=== PATIENT | male | born 1940 | race Hispanic/Latino ===

== ENCOUNTER 2017-06-16 11:02 | Inpatient (IN) | payer MEDICARE ==
[~2017-06-16] VITALS: Ht 172.7 cm; Wt 80.4 kg
[2017-06-16 11:33] LABS: CREATININE 1.6 mg/dL (0.5-1.5); POTASSIUM 3.9 mmol/L (3.5-5.1)
[2017-06-16 11:37] LABS: BASOPHILS % (AUTO) 0.7 % (0.0-5.0); EOSINOPHILS % (AUTO) 0.9 % (0.0-8.0); HEMATOCRIT 45.3 % (42-54); MEAN CORPUSCULAR HEMOGLOBIN 29.8 pg (27.0-33.0); MEAN CORPUSCULAR HGB CONC 33.8 g/dL (32.0-36.0); MONOCYTES % (AUTO) 8.2 % (3.0-13.0); NEUTROPHILS % (AUTO) 67.2 % (40.0-77.0); PLATELET COUNT (AUTO) 143 K/uL (130-400); RED BLOOD CELL COUNT(AUTO) 5.14 MIL/uL (4.50-6.20); RED CELL DISTRIBUTION WIDTH 13.7 % (11.0-15.5); WHITE BLOOD COUNT (AUTO) 6.7 K/uL (4.8-10.8)
[2017-06-16 11:38] LABS: ALBUMIN 3.6 g/dL (3.5-5.0); BILIRUBIN,TOTAL 0.8 mg/dL (0.2-1.0); TOTAL PROTEIN, SERUM 8.2 g/dL (6.0-8.3)
[2017-06-16 13:10] VITALS: BP 159/91
[2017-06-16] MEDS ORDERED: SODIUM CHLORIDE 0.9% 1000ML 1,000 ML IV ONE (13:27)
[2017-06-16] MEDS ORDERED: MAG HYDROX/AL HYDROX/SIMETH ES 30 ML SUSP UDCUP PO PRN (13:30)
[2017-06-16] MEDS ORDERED: GUAIFENESIN-DM 200/20 MG 10 ML PO PRN (13:30)
[2017-06-16] MEDS ORDERED: ONDANSETRON HCL 4 MG/2 ML VIAL IV PRN (13:30)
[2017-06-16] MEDS ORDERED: NITROGLYCERIN 0.4 MG SL TAB SL PRN (13:30)
[2017-06-16] MEDS ORDERED: ACETAMINOPHEN-CODEINE 300/30MG TAB PO PRN (13:30)
[2017-06-16] MEDS ORDERED: POTASSIUM CHLORIDE 20MEQ/100ML 100 ML IV PRN (13:30)
[2017-06-16] MEDS ORDERED: MORPHINE SULFATE 2 MG/ML 1ML SYG IV PRN (13:30)
[2017-06-16] MEDS ORDERED: LACTULOSE 20 GM/30 ML UDCUP PO PRN (13:30)
[2017-06-16] MEDS ORDERED: LIDOCAINE HCL-MPF 1% 2ML VIAL IVP PRN (13:30)
[2017-06-16] MEDS ORDERED: ACETAMINOPHEN 325 MG TAB PO PRN ×2 (13:30)
[2017-06-16] MEDS ORDERED: POTASSIUM CHLORIDE 20 MEQ ERTAB PO PRN (13:30)
[2017-06-16] MEDS ORDERED: POTASSIUM CHLORIDE 10% ELIXIR 20 MEQ/15 ML UDCUP PO PRN (13:30)
[2017-06-16] MEDS ORDERED: FINA5TAB41 PO (13:59)
[2017-06-16] MEDS ORDERED: ALLO100T PO (13:59)
[2017-06-16] MEDS ORDERED: LISI1TAB9 PO (13:59)
[2017-06-16] MEDS ORDERED: AMLO5TAB2 PO (13:59)
[2017-06-16] MEDS ORDERED: CHLO473M2 BC (13:59)
[2017-06-16 14:54] LABS: HEMATOCRIT 42.2 % (42-54); MEAN CORPUSCULAR HEMOGLOBIN 29.8 pg (27.0-33.0); MEAN CORPUSCULAR HGB CONC 33.9 g/dL (32.0-36.0); PLATELET COUNT (AUTO) 145 K/uL (130-400); WHITE BLOOD COUNT (AUTO) 6.2 K/uL (4.8-10.8)
[2017-06-16 14:57] LABS: CREATININE 1.5 mg/dL (0.5-1.5); POTASSIUM 3.7 mmol/L (3.5-5.1)
[2017-06-16] MEDS: SODIUM CHLORIDE 0.9% 1000ML 1,000 ML IV SCH (15:45)
[2017-06-16] MEDS ORDERED: CLONIDINE HCL 0.1 MG TABLET PO PRN (15:45)
[2017-06-16] MEDS ORDERED: IOPAMIDOL-370 100 ML VIAL IV ONE (15:53)
[2017-06-16 17:41] VITALS: BP 163/91
[2017-06-16] MEDS: HYDRALAZINE HCL 20 MG/ML VIAL IV PRN (19:07)
[2017-06-16 19:44] VITALS: BP 136/77
[2017-06-16] MEDS: LABETALOL HCL 100 MG TABLET PO SCH (21:00)
[2017-06-16] MEDS: FINASTERIDE 5 MG TABLET PO SCH (21:06)
[2017-06-16] MEDS: FAMOTIDINE/PF 20 MG/2 ML VIAL IV SCH (21:06)
[2017-06-16 23:39] VITALS: BP 132/77
[2017-06-17] VITALS (17 sets, daily range): BP systolic 133–166; BP diastolic 59–94
[2017-06-17] MEDS: SODIUM CHLORIDE 0.9% 1000ML 1,000 ML IV SCH ×4 (00:32→21:21)
[2017-06-17 03:41] LABS: BASOPHILS % (AUTO) 0.8 % (0.0-5.0); EOSINOPHILS % (AUTO) 2.3 % (0.0-8.0); HEMATOCRIT 40.5 % (42-54); LYMPHOCYTES % (AUTO) 26.3 % (21.0-51.0); MEAN CORPUSCULAR HEMOGLOBIN 29.9 pg (27.0-33.0); MEAN CORPUSCULAR HGB CONC 33.9 g/dL (32.0-36.0); MEAN CORPUSCULAR VOLUME 88.1 fL (79-99); MONOCYTES % (AUTO) 11.7 % (3.0-13.0); NEUTROPHILS % (AUTO) 58.9 % (40.0-77.0); PLATELET COUNT (AUTO) 143 K/uL (130-400); RED CELL DISTRIBUTION WIDTH 13.8 % (11.0-15.5); WHITE BLOOD COUNT (AUTO) 5.4 K/uL (4.8-10.8)
[2017-06-17 04:07] LABS: BILIRUBIN,TOTAL 0.7 mg/dL (0.2-1.0); CREATININE 1.5 mg/dL (0.5-1.5); MAGNESIUM 2.3 mg/dL (1.80-2.40); POTASSIUM 3.8 mmol/L (3.5-5.1); TOTAL PROTEIN, SERUM 6.9 g/dL (6.0-8.3)
[2017-06-17 04:35] LABS: B-TYPE NATRIURETIC PEPTIDE 36 pg/mL (0-100)
[2017-06-17 05:39] LABS: INR 0.97 (0.85-1.15); PROTHROMBIN TIME 10.2 SEC (9.6-11.6)
[2017-06-17 05:42] LABS: APPEARANCE,URINE Clear (CLEAR); BILIRUBIN,URINE Negative (NEGATIVE); COLOR,URINE Yellow (YELLOW); GLUCOSE, URINE (UA) Negative (NEGATIVE); KETONES,URINE Negative (NEGATIVE); LEUKOCYTE ESTERASE ,URINE Negative (NEGATIVE); NITRATE,URINE Negative (NEGATIVE); OCCULT BLOOD,URINE Negative (NEGATIVE); PH,URINE 5.5 (5.0-8.0); PROTEIN,URINE Negative (NEGATIVE)
[2017-06-17] MEDS: HYDROCHLOROTHIAZIDE 25 MG TABLET PO SCH (09:00)
[2017-06-17] MEDS: AMLODIPINE BESYLATE 5 MG TAB PO SCH (09:01)
[2017-06-17] MEDS: LABETALOL HCL 100 MG TABLET PO SCH ×2 (09:01→21:00)
[2017-06-17] MEDS: ALLOPURINOL 100 MG TABLET PO SCH (09:01)
[2017-06-17] MEDS: LISINOPRIL 10 MG TABLET PO SCH (09:01)
[2017-06-17] MEDS ORDERED: ONDANSETRON HCL 4 MG/2 ML VIAL ONE (11:47)
[2017-06-17] MEDS ORDERED: ATROPINE SULFATE 0.1 MG/ML 10 ML SYG IVP ONE (11:47)
[2017-06-17] MEDS ORDERED: GLYCOPYRROLATE 0.2 MG/ML 5 ML VIAL ONE (11:47)
[2017-06-17] MEDS ORDERED: HEPARIN SODIUM 1000UNIT/ML 10ML VIAL ONE ×2 (11:47→12:56)
[2017-06-17] MEDS ORDERED: ESMOLOL HCL 10 MG/ML 10 ML VIAL ONE (11:47)
[2017-06-17] MEDS ORDERED: DEXAMETHASONE SOD PHOSPHATE 10MG/ML 1ML VIAL ONE (11:47)
[2017-06-17] MEDS ORDERED: ROCURONIUM BROMIDE 10MG/1ML 5ML VL ONE (11:48)
[2017-06-17] MEDS ORDERED: MIDAZOLAM HCL 1 MG/ML 2ML VIAL ONE (11:48)
[2017-06-17] MEDS ORDERED: EPINEPHRINE 1 MG/ML AMPULE ONE (11:48)
[2017-06-17] MEDS ORDERED: EPHEDRINE SULFATE 50 MG/ML AMPULE ONE (11:49)
[2017-06-17] MEDS ORDERED: PROPOFOL 10 MG/ML 20ML VIAL IV ONE (11:49)
[2017-06-17] MEDS ORDERED: FENTANYL CITRATE PF 50 MCG/1 ML 5ML AMP IV ONE ×2 (11:49→13:53)
[2017-06-17] MEDS ORDERED: ISOVUE-300 100 ML VIAL IV ONE (12:56)
[2017-06-17] MEDS ORDERED: CEFAZOLIN 1GM / D5W 50ML 100 ML ONE (13:02)
[2017-06-17] MEDS ORDERED: NITROGLYCERIN 5 MG/ML 10 ML VIAL IV ONE (14:17)
[2017-06-17] MEDS ORDERED: PHARMACY COMMUNICATION MISC SCH (15:45)
[2017-06-17] MEDS ORDERED: NITROGLYCERIN 50 MG/D5% WATER 250 BOT IV SCH (15:45)
[2017-06-17] MEDS ORDERED: NOREPINEPHRINE 4MG/NS 250ML 250 ML IV SCH (15:45)
[2017-06-17] MEDS: FAMOTIDINE/PF 20 MG/2 ML VIAL IV SCH (21:15)
[2017-06-17] MEDS: FINASTERIDE 5 MG TABLET PO SCH (21:16)
[2017-06-17] MEDS: ACETAMINOPHEN-CODEINE 300/30MG TAB PO PRN (23:29)
[2017-06-18] VITALS (30 sets, daily range): BP systolic 132–177; BP diastolic 58–103
[2017-06-18] MEDS ORDERED: ATROPINE SULFATE 0.1 MG/ML 10 ML SYG IVP ONE (00:23)
[2017-06-18] MEDS ORDERED: CEFAZOLIN SODIUM 1 GM VIAL IV SCH (02:00)
[2017-06-18 03:43] LABS: HEMATOCRIT 37.9 % (42-54); MEAN CORPUSCULAR HEMOGLOBIN 30.1 pg (27.0-33.0); MEAN CORPUSCULAR HGB CONC 33.8 g/dL (32.0-36.0); MEAN CORPUSCULAR VOLUME 89.1 fL (79-99); PLATELET COUNT (AUTO) 110 K/uL (130-400); RED BLOOD CELL COUNT(AUTO) 4.26 MIL/uL (4.50-6.20); RED CELL DISTRIBUTION WIDTH 13.7 % (11.0-15.5); WHITE BLOOD COUNT (AUTO) 8.1 K/uL (4.8-10.8)
[2017-06-18] MEDS: SODIUM CHLORIDE 0.9% 1000ML 1,000 ML IV SCH ×3 (03:44→17:22)
[2017-06-18 03:55] LABS: CREATININE 1.4 mg/dL (0.5-1.5)
[2017-06-18] MEDS: ACETAMINOPHEN-CODEINE 300/30MG TAB PO PRN (08:16)
[2017-06-18] MEDS: MORPHINE SULFATE 4 MG/1ML SYG IV PRN (08:38)
[2017-06-18] MEDS: AMLODIPINE BESYLATE 5 MG TAB PO SCH (09:00)
[2017-06-18] MEDS: HYDROCHLOROTHIAZIDE 25 MG TABLET PO SCH (09:00)
[2017-06-18] MEDS: LISINOPRIL 10 MG TABLET PO SCH (09:00)
[2017-06-18] MEDS: LABETALOL HCL 100 MG TABLET PO SCH ×2 (09:00→21:00)
[2017-06-18] MEDS ORDERED: ENOXAPARIN SODIUM 30 MG/0.3 ML SQ SCH (09:00)
[2017-06-18] MEDS: ALLOPURINOL 100 MG TABLET PO SCH (10:01)
[2017-06-18] MEDS: DOCUSATE SODIUM 100 MG CAP PO SCH (10:02)
[2017-06-18] MEDS: FINASTERIDE 5 MG TABLET PO SCH (21:22)
[2017-06-18] MEDS: FAMOTIDINE/PF 20 MG/2 ML VIAL IV SCH (21:22)
[2017-06-19] VITALS (13 sets, daily range): BP systolic 127–179; BP diastolic 59–85
[2017-06-19] MEDS: SODIUM CHLORIDE 0.9% 1000ML 1,000 ML IV SCH ×2 (03:12→12:16)
[2017-06-19 04:08] LABS: HEMATOCRIT 35.7 % (42-54); MEAN CORPUSCULAR HGB CONC 34.9 g/dL (32.0-36.0); MEAN CORPUSCULAR VOLUME 88.8 fL (79-99); PLATELET COUNT (AUTO) 84 K/uL (130-400); RED BLOOD CELL COUNT(AUTO) 4.01 MIL/uL (4.50-6.20); RED CELL DISTRIBUTION WIDTH 13.7 % (11.0-15.5); WHITE BLOOD COUNT (AUTO) 7.5 K/uL (4.8-10.8)
[2017-06-19 04:16] LABS: CREATININE 1.4 mg/dL (0.5-1.5); POTASSIUM 3.8 mmol/L (3.5-5.1)
[2017-06-19] MEDS: ALLOPURINOL 100 MG TABLET PO SCH (07:25)
[2017-06-19] MEDS: DOCUSATE SODIUM 100 MG CAP PO SCH (07:25)
[2017-06-19] MEDS: LABETALOL HCL 100 MG TABLET PO SCH ×2 (07:26→20:08)
[2017-06-19] MEDS: AMLODIPINE BESYLATE 5 MG TAB PO SCH (07:26)
[2017-06-19] MEDS: HYDROCHLOROTHIAZIDE 25 MG TABLET PO SCH (09:00)
[2017-06-19] MEDS: LISINOPRIL 10 MG TABLET PO SCH (09:00)
[2017-06-19] MEDS: LISINOPRIL 5 MG TABLET PO SCH (13:12)
[2017-06-19] MEDS ORDERED: FUROSEMIDE 10 MG/ML 2ML VIAL ONE (13:43)
[2017-06-19] MEDS ORDERED: FUROSEMIDE 10 MG/ML 2ML VIAL IV ONE (13:45)
[2017-06-19] MEDS: FINASTERIDE 5 MG TABLET PO SCH (20:08)
[2017-06-19] MEDS: FAMOTIDINE/PF 20 MG/2 ML VIAL IV SCH (20:08)
[2017-06-20] VITALS (8 sets, daily range): BP systolic 110–172; BP diastolic 60–88
[2017-06-20 04:35] LABS: HEMATOCRIT 35.1 % (42-54); MEAN CORPUSCULAR HEMOGLOBIN 29.6 pg (27.0-33.0); MEAN CORPUSCULAR HGB CONC 33.6 g/dL (32.0-36.0); PLATELET COUNT (AUTO) 80 K/uL (130-400); RED BLOOD CELL COUNT(AUTO) 3.99 MIL/uL (4.50-6.20); RED CELL DISTRIBUTION WIDTH 13.9 % (11.0-15.5); WHITE BLOOD COUNT (AUTO) 8.3 K/uL (4.8-10.8)
[2017-06-20 04:42] LABS: CREATININE 1.4 mg/dL (0.5-1.5); POTASSIUM 3.3 mmol/L (3.5-5.1)
[2017-06-20 05:32] LABS: B-TYPE NATRIURETIC PEPTIDE 318 pg/mL (0-100)
[2017-06-20] MEDS: AMLODIPINE BESYLATE 5 MG TAB PO SCH (08:00)
[2017-06-20] MEDS: LABETALOL HCL 100 MG TABLET PO SCH ×2 (08:00→20:07)
[2017-06-20] MEDS: DOCUSATE SODIUM 100 MG CAP PO SCH (08:01)
[2017-06-20] MEDS: ALLOPURINOL 100 MG TABLET PO SCH (08:01)
[2017-06-20] MEDS: LISINOPRIL 5 MG TABLET PO SCH (08:01)
[2017-06-20] MEDS ORDERED: LABE100T PO (08:56)
[2017-06-20] MEDS: SODIUM CHLORIDE 0.9% 1000ML 1,000 ML IV SCH ×4 (09:12→19:33)
[2017-06-20] MEDS ORDERED: LISINOPRIL 5 MG TABLET PO SCH (11:30)
[2017-06-20] MEDS: HYDRALAZINE HCL 20 MG/ML VIAL IV PRN (14:59)
[2017-06-20] MEDS: MORPHINE SULFATE 4 MG/1ML SYG IV PRN (19:53)
[2017-06-20] MEDS: FAMOTIDINE/PF 20 MG/2 ML VIAL IV SCH (20:07)
[2017-06-20] MEDS: FINASTERIDE 5 MG TABLET PO SCH (20:07)
[2017-06-21 03:42] VITALS: BP 132/69
[2017-06-21 07:00] VITALS: BP 150/75
[2017-06-21] MEDS: AMLODIPINE BESYLATE 5 MG TAB PO SCH (08:21)
[2017-06-21] MEDS: ALLOPURINOL 100 MG TABLET PO SCH (08:21)
[2017-06-21] MEDS: DOCUSATE SODIUM 100 MG CAP PO SCH (08:21)
[2017-06-21] MEDS: LABETALOL HCL 100 MG TABLET PO SCH (08:21)
[2017-06-21] MEDS ORDERED: LISINOPRIL 5 MG TABLET PO SCH (09:00)
[2017-09-07] MEDS ORDERED: LABE100T PO ×2 (15:27)
== END 2017-06-21 08:41 | disposition home or self-care (01) | DRG 220 ==
LOC: EDH 11:02 → EDHIP 11:49 → 2AH 13:12 → 2BH 06-17 13:50 → 2AH 06-19 14:23
PROVIDERS: ADMIT Internal Medicine; ATTEND Internal Medicine
PROC: B41B1ZZ Fluoroscopy of Other Intra-Abdominal Arteries using Low Osmolar Contrast (ICD-10-PCS; 2017-06-17)
PROC: 02VX3DZ Restriction of Thoracic Aorta, Ascending/Arch with Intraluminal Device, Percutaneous Approach (ICD-10-PCS; 2017-06-17)
PROC: 04V03DZ Restriction of Abdominal Aorta with Intraluminal Device, Percutaneous Approach (ICD-10-PCS; 2017-06-17)
PROC: B3101ZZ Fluoroscopy of Thoracic Aorta using Low Osmolar Contrast (ICD-10-PCS; 2017-06-17)
PROC: B4101ZZ Fluoroscopy of Abdominal Aorta using Low Osmolar Contrast (ICD-10-PCS; 2017-06-17)
PROC: 04QK0ZZ Repair Right Femoral Artery, Open Approach (ICD-10-PCS; principal; 2017-06-17 10:00)
DX: I71.03 Dissection of thoracoabdominal aorta (principal); N28.0 Ischemia and infarction of kidney; N18.3 Chronic kidney disease, stage 3 (moderate); Q60.0 Renal agenesis, unilateral; I71.02 Dissection of abdominal aorta; I12.9 Hypertensive chronic kidney disease with stage 1 through stage 4 chronic kidney disease, or unspecified chronic kidney disease; I71.2 Thoracic aortic aneurysm, without rupture; N40.0 Benign prostatic hyperplasia without lower urinary tract symptoms; Z79.899 Other long term (current) drug therapy; Z87.891 Personal history of nicotine dependence
CPT/HCPCS: 33880; 33881; 33883; 34713; 36415; 71275; 74174; 75959; 80048; 80053; 81003; 83735; 83880; 84132; 85025; 85027; 85347; 85610; 85730; 86850; 86900; 86901; 86922; 93005; 93306; A4218; A4344; C1725; C1760; C1769; C1887; C1894; J0171; J0360; J0461; J0690; J1100; J1644; J1940; J2250; J2270; J2405; J2704; J3010; J3480; J3490; J7030; J7040; J7120; Q9967

== ENCOUNTER → 2017-07-27 | Outpatient (CLI) | payer MEDICARE ==
[~2017-07-27] MED LIST: ALLO100T PO; AMLO5TAB2 PO; CHLO473M2 BC; FINA5TAB41 PO; IOPAMIDOL-370 75 ML VIAL IV ONE; LABE100T PO; LISI1TAB11 PO; LISI1TAB9 PO
== END ==
LOC: OIH 07:55
PROVIDERS: ATTEND Internal Medicine Cardiovascular Disease
DX: I71.4 Abdominal aortic aneurysm, without rupture (principal); N26.1 Atrophy of kidney (terminal)
CPT/HCPCS: 71275; 74174; Q9967

== ENCOUNTER 2017-09-05 07:00 | Inpatient (IN) | payer MEDICARE ==
[~2017-09-05] VITALS: Ht 172.7 cm; Wt 78.0 kg
[~2017-09-05 07:00] MED LIST changes: -AMLO5TAB2 PO; -CHLO473M2 BC; -IOPAMIDOL-370 75 ML VIAL IV ONE; -LABE100T PO; +LABE100T5 PO; -LISI1TAB11 PO
[2017-09-05 09:26] VITALS: BP 176/71
[2017-09-05 09:40] LABS: BASOPHILS % (AUTO) 0.6 % (0.0-5.0); EOSINOPHILS % (AUTO) 1.7 % (0.0-8.0); HEMATOCRIT 39.1 % (42-54); LYMPHOCYTES % (AUTO) 20.4 % (21.0-51.0); MEAN CORPUSCULAR HEMOGLOBIN 30.5 pg (27.0-33.0); MEAN CORPUSCULAR HGB CONC 34.4 g/dL (32.0-36.0); MEAN CORPUSCULAR VOLUME 88.6 fL (79-99); NEUTROPHILS % (AUTO) 68.3 % (40.0-77.0); PLATELET COUNT (AUTO) 164 K/uL (130-400); RED BLOOD CELL COUNT(AUTO) 4.41 MIL/uL (4.50-6.20); RED CELL DISTRIBUTION WIDTH 15.1 % (11.0-15.5); WHITE BLOOD COUNT (AUTO) 5.6 K/uL (4.8-10.8)
[2017-09-05 09:40] LABS: APPEARANCE,URINE Clear (CLEAR); BILIRUBIN,URINE Negative (NEGATIVE); COLOR,URINE Yellow (YELLOW); GLUCOSE, URINE (UA) Negative (NEGATIVE); KETONES,URINE Negative (NEGATIVE); LEUKOCYTE ESTERASE ,URINE Negative (NEGATIVE); NITRATE,URINE Negative (NEGATIVE); OCCULT BLOOD,URINE Negative (NEGATIVE); PH,URINE 5.5 (5.0-8.0); PROTEIN,URINE Negative (NEGATIVE); UROBILINOGEN,URINE 0.2 mg/dL (0.2-1.0)
[2017-09-05 09:51] LABS: CREATININE 1.6 mg/dL (0.5-1.5); POTASSIUM 4.7 mmol/L (3.5-5.1)
[2017-09-05 09:57] LABS: INR 0.95 (0.85-1.15); PARTIAL THROMBOPLASTIN TIME 28.1 SEC (26.3-35.5)
[2017-09-07] VITALS (14 sets, daily range): BP systolic 128–173; BP diastolic 56–80
[2017-09-07] MEDS ORDERED: SODIUM CHLORIDE 0.9% 1000ML 1,000 ML IV SCH ×2 (06:00→15:15)
[2017-09-07] MEDS ORDERED: CEFAZOLIN SODIUM 1 GM VIAL IVP SCH (06:00)
[2017-09-07] MEDS: SODIUM CHLORIDE 0.9% 1000ML 1,000 ML IV SCH ×3 (08:13→21:05)
[2017-09-07] MEDS ORDERED: MIDAZOLAM HCL 1 MG/ML 2ML VIAL ONE ×2 (11:31→13:11)
[2017-09-07] MEDS ORDERED: FENTANYL CITRATE PF 50 MCG/1 ML 2ML VIAL ONE (11:32)
[2017-09-07] MEDS ORDERED: PROPOFOL 10 MG/ML 20ML VIAL IV ONE ×2 (12:00→13:11)
[2017-09-07] MEDS ORDERED: ISOVUE-300 100 ML VIAL IV ONE (12:41)
[2017-09-07] MEDS ORDERED: HEPARIN SODIUM 1000UNIT/ML 10ML VIAL ONE (12:41)
[2017-09-07] MEDS ORDERED: MINERAL OIL 25 ML OIL TP ONE (12:41)
[2017-09-07] MEDS ORDERED: FENTANYL CITRATE PF 50 MCG/1 ML 5ML AMP IV ONE (13:12)
[2017-09-07] MEDS ORDERED: LIDOCAINE HCL-MPF 1% 5ML AMP IJ ONE (13:13)
[2017-09-07] MEDS ORDERED: LIDOCAINE HCL 4% LTA SOL 4 ML VIAL ONE (13:13)
[2017-09-07] MEDS ORDERED: NEOSTIGMINE METHYLSULFATE 1MG/ML IV ONE (13:13)
[2017-09-07] MEDS ORDERED: GLYCOPYRROLATE 0.2 MG/ML 5 ML VIAL ONE (13:13)
[2017-09-07] MEDS ORDERED: ROCURONIUM BROMIDE 10MG/1ML 5ML VL ONE (13:13)
[2017-09-07] MEDS ORDERED: DEXAMETHASONE SOD PHOSPHATE 10MG/ML 1ML VIAL ONE (13:13)
[2017-09-07] MEDS ORDERED: LIDOCAINE HCL 2% JELLY 5 ML ONE (13:13)
[2017-09-07] MEDS ORDERED: PHENYLEPHRINE HCL 10 MG/ML 1ML VIAL IV ONE (13:13)
[2017-09-07] MEDS ORDERED: CEFAZOLIN SODIUM 1 GM VIAL ONE (13:58)
[2017-09-07] MEDS ORDERED: ACETAMINOPHEN-CODEINE 300/30MG TAB PO PRN (15:15)
[2017-09-07] MEDS ORDERED: ACETAMINOPHEN 325 MG TAB PO PRN (15:15)
[2017-09-07] MEDS ORDERED: LISI1TAB11 PO (15:27)
[2017-09-07] MEDS ORDERED: LABE100T5 PO ×2 (15:27)
[2017-09-07] MEDS: MORPHINE SULFATE 4 MG/1ML SYG IV PRN (18:08)
[2017-09-07] MEDS ORDERED: LABETALOL HCL 100 MG TABLET PO SCH (21:00)
[2017-09-08] VITALS (12 sets, daily range): BP systolic 93–148; BP diastolic 56–77
[2017-09-08] MEDS ORDERED: CEFAZOLIN SODIUM 1 GM VIAL ONE (00:19)
[2017-09-08] MEDS: SODIUM CHLORIDE 0.9% 1000ML 1,000 ML IV SCH ×2 (02:00→08:40)
[2017-09-08] MEDS: MORPHINE SULFATE 4 MG/1ML SYG IV PRN (03:31)
[2017-09-08 04:01] LABS: HEMATOCRIT 33.1 % (42-54); MEAN CORPUSCULAR VOLUME 88.3 fL (79-99); PLATELET COUNT (AUTO) 118 K/uL (130-400); RED BLOOD CELL COUNT(AUTO) 3.75 MIL/uL (4.50-6.20); RED CELL DISTRIBUTION WIDTH 15.1 % (11.0-15.5); WHITE BLOOD COUNT (AUTO) 7.3 K/uL (4.8-10.8)
[2017-09-08 04:26] LABS: CREATININE 1.4 mg/dL (0.5-1.5)
[2017-09-08] MEDS ORDERED: CEFAZOLIN SODIUM 1 GM VIAL IVP SCH (06:00)
[2017-09-08] MEDS ORDERED: CEFAZOLIN 1GM / D5W 50ML 50 ML IV SCH (06:00)
[2017-09-08] MEDS ORDERED: LABETALOL HCL 100 MG TABLET PO SCH (09:00)
[2017-09-08] MEDS ORDERED: LISINOPRIL 20 MG TABLET PO SCH (09:00)
[2017-09-08] MEDS ORDERED: ALLOPURINOL 100 MG TABLET PO SCH (09:00)
[2017-09-08] MEDS ORDERED: HYDROCHLOROTHIAZIDE 25 MG TABLET PO SCH (09:00)
[2017-09-08] MEDS ORDERED: FINASTERIDE 5 MG TABLET PO SCH (09:00)
== END 2017-09-08 16:17 | disposition home or self-care (01) | DRG 673 ==
LOC: EDSTATUS 08:00 → DAHIP 09-07 05:53 → 2BH 09-07 15:35
PROVIDERS: ADMIT Internal Medicine; ATTEND Internal Medicine
PROC: B4101ZZ Fluoroscopy of Abdominal Aorta using Low Osmolar Contrast (ICD-10-PCS; principal; 2017-09-07)
PROC: 04V04DZ Restriction of Abdominal Aorta with Intraluminal Device, Percutaneous Endoscopic Approach (ICD-10-PCS; 2017-09-07)
DX: I72.2 Aneurysm of renal artery (principal); I71.02 Dissection of abdominal aorta; I12.9 Hypertensive chronic kidney disease with stage 1 through stage 4 chronic kidney disease, or unspecified chronic kidney disease
CPT/HCPCS: 34705; 34713; 36415; 71045; 80048; 81003; 85025; 85027; 85347; 85610; 85730; 86850; 86900; 86901; 86922; 93005; A4218; A4344; C1725; C1760; C1769; C1887; C1894; J0690; J1100; J1644; J2250; J2270; J2370; J2704; J2710; J3010; J3490; J7030; Q9967

== ENCOUNTER → 2020-05-15 | Outpatient (CLI) | payer MEDICARE ==
[~2020-05-15] MED LIST changes: +AEC81 PO; +AMLO5TAB4 PO; +IOHEXOL 350 MG/ML 100ML INFUS..BTL IV ONE; +LISI1TAB51 PO; -LISI1TAB9 PO
== END | disposition home or self-care (01) ==
LOC: RAH 07:31
PROVIDERS: ATTEND Internal Medicine Cardiovascular Disease
DX: I71.4 Abdominal aortic aneurysm, without rupture (principal); N28.1 Cyst of kidney, acquired; I71.2 Thoracic aortic aneurysm, without rupture; Z95.820 Peripheral vascular angioplasty status with implants and grafts
CPT/HCPCS: 71275; 74174; Q9967

== ENCOUNTER → 2020-08-14 | Outpatient (CLI) | payer MEDICARE ==
[~2020-08-14] MED LIST changes: -IOHEXOL 350 MG/ML 100ML INFUS..BTL IV ONE
== END | disposition home or self-care (01) ==
LOC: SHCH 09:44
PROVIDERS: ATTEND Internal Medicine Cardiovascular Disease
DX: I73.9 Peripheral vascular disease, unspecified (principal)
CPT/HCPCS: 93925

== ENCOUNTER 2020-09-08 10:00 | Inpatient (IN) | payer MEDICARE ==
[~2020-09-08] VITALS: Ht 172.7 cm; Wt 76.4 kg
[2020-09-08 12:47] VITALS: BP 160/72
[2020-09-08 12:59] LABS: APPEARANCE,URINE Clear (CLEAR); BILIRUBIN,URINE Negative (NEGATIVE); COLOR,URINE Yellow (YELLOW); GLUCOSE, URINE (UA) Negative (NEGATIVE); KETONES,URINE Negative (NEGATIVE); LEUKOCYTE ESTERASE ,URINE Negative (NEGATIVE); NITRATE,URINE Negative (NEGATIVE); OCCULT BLOOD,URINE Negative (NEGATIVE); PROTEIN,URINE Trace mg/dL (NEGATIVE); UROBILINOGEN,URINE 0.2 mg/dL (0.2-1.0)
[2020-09-08 13:00] LABS: BASOPHILS % (AUTO) 0.3 % (0.0-5.0); EOSINOPHILS % (AUTO) 1.6 % (0.0-8.0); HEMATOCRIT 44.9 % (42-54); LYMPHOCYTES % (AUTO) 20.4 % (21.0-51.0); MEAN CORPUSCULAR HGB CONC 32.3 g/dL (32.0-36.0); MEAN CORPUSCULAR VOLUME 92.8 fL (79-99); MONOCYTES % (AUTO) 8.2 % (3.0-13.0); NEUTROPHILS % (AUTO) 68.9 % (40.0-77.0); PLATELET COUNT (AUTO) 124 K/uL (130-400); RED BLOOD CELL COUNT(AUTO) 4.84 MIL/uL (4.50-6.20); RED CELL DISTRIBUTION WIDTH 13.3 % (11.0-15.5); WHITE BLOOD COUNT (AUTO) 6.4 K/uL (4.8-10.8)
[2020-09-08 13:07] LABS: CREATININE 1.8 mg/dL (0.5-1.5); POTASSIUM 4.3 mmol/L (3.5-5.1)
[2020-09-08 13:09] LABS: BACTERIA,URINE Rare /HPF (None Seen); RBC,URINE 0-1 /HPF (0-1); SQUAMOUS EPITHELIAL CELL,UR Rare /HPF (0-2); WBC,URINE 0-1 /HPF (0-1)
[2020-09-08 13:17] LABS: INR 1.01 (0.85-1.15)
[2020-09-08 13:18] LABS: PARTIAL THROMBOPLASTIN TIME 36.7 SEC (26.3-35.5)
[2020-09-11] VITALS (15 sets, daily range): BP systolic 118–148; BP diastolic 61–75
[2020-09-11] MEDS: CEFAZOLIN SODIUM 1 GM VIAL IVP SCH ×3 (06:00→17:18)
[2020-09-11] MEDS ORDERED: SODIUM CHLORIDE 0.9% 1000ML 1,000 ML IV ONE (06:42)
[2020-09-11] MEDS ORDERED: LIDOCAINE HCL 2% 20ML ONE ×2 (07:19→09:04)
[2020-09-11] MEDS ORDERED: HEPARIN SODIUM 1000UNIT/ML 10ML VIAL ONE ×2 (07:19→10:08)
[2020-09-11] MEDS ORDERED: IODIXANOL 320 MG/ML 100 ML VIAL ONE (07:20)
[2020-09-11] MEDS ORDERED: LIDOCAINE PF 2% 5ML ABBOJECT ONE ×2 (07:23→08:42)
[2020-09-11] MEDS ORDERED: MIDAZOLAM HCL 1 MG/ML 2ML VIAL ONE (07:29)
[2020-09-11] MEDS ORDERED: NOREPINEPHRINE BITARTRATE 1 MG/1 ML ML IV ONE (07:40)
[2020-09-11] MEDS ORDERED: CEFAZOLIN SODIUM 1 GM VIAL ONE ×2 (07:44→09:07)
[2020-09-11] MEDS ORDERED: GLYCOPYRROLATE 1 MG/5 ML SYRINGE ONE (08:42)
[2020-09-11] MEDS ORDERED: PROPOFOL 10 MG/ML 20ML VIAL IV ONE (08:42)
[2020-09-11] MEDS ORDERED: SUCCINYLCHOLINE CHLORIDE 20 MG/ML 10 ML VIAL ONE (08:42)
[2020-09-11] MEDS ORDERED: NEOSTIGMINE 5MG/5ML SYR IV ONE (08:43)
[2020-09-11] MEDS ORDERED: KETAMINE 50MG/ML SYRINGE 50 MG/ML DISP.SYRIN IV ONE (08:43)
[2020-09-11] MEDS ORDERED: ROCURONIUM 10MG/1ML SYR 10 MG/ML ML ONE (08:43)
[2020-09-11] MEDS ORDERED: ONDANSETRON HCL 4 MG/2 ML VIAL ONE (08:43)
[2020-09-11] MEDS ORDERED: ATROPINE SULFATE 0.1 MG/ML 10 ML SYG IVP ONE (09:17)
[2020-09-11] MEDS ORDERED: FENTANYL CITRATE PF 50 MCG/1 ML 2ML VIAL ONE (09:30)
[2020-09-11] MEDS ORDERED: NOREPINEPHRINE 4MG/NS 250ML 250 ML IV SCH (15:00)
[2020-09-11] MEDS ORDERED: ACETAMINOPHEN 325 MG TAB PO PRN (15:00)
[2020-09-11] MEDS ORDERED: TEMAZEPAM 30 MG CAP PO PRN (15:00)
[2020-09-11] MEDS ORDERED: SODIUM CHLORIDE 0.9% 1000ML 1,000 ML IV SCH (15:00)
[2020-09-11] MEDS ORDERED: NITROGLYCERIN 50 MG/D5% WATER 250 BOT IV PRN (15:00)
[2020-09-11] MEDS ORDERED: ONDANSETRON HCL 4 MG/2 ML VIAL IV PRN (15:00)
[2020-09-11] MEDS ORDERED: GLYCOPYRROLATE 0.2 MG/ML 5 ML VIAL ONE (15:15)
[2020-09-11] MEDS ORDERED: MORPHINE SULFATE 4 MG/1ML SYG ONE (17:14)
[2020-09-11] MEDS ORDERED: ASPIRIN 325MG EC TAB 325 MG TABLET.DR PO SCH (17:15)
[2020-09-11] MEDS ORDERED: MORPHINE SULFATE 4 MG/1ML SYG IV PRN (17:15)
[2020-09-11] MEDS ORDERED: PANTOPRAZOLE 40 MG/VIAL IVP SCH (17:15)
[2020-09-11] MEDS ORDERED: ACETAMINOPHEN-CODEINE 300/30MG TAB PO PRN (17:15)
[2020-09-11] MEDS ORDERED: CLOPIDOGREL BISULFATE 300 MG TAB PO SCH (17:15)
[2020-09-11] MEDS ORDERED: MORPHINE SULFATE 5 MG/ML VIAL IV PRN (17:15)
[2020-09-11] MEDS: LABETALOL HCL 100 MG TABLET PO SCH (21:00)
[2020-09-12] VITALS (50 sets, daily range): BP systolic 97–168; BP diastolic 48–92
[2020-09-12] MEDS: ACETAMINOPHEN-CODEINE 300/30MG TAB PO PRN ×2 (00:36→08:10)
[2020-09-12 04:07] LABS: HEMATOCRIT 35.6 % (42-54); MEAN CORPUSCULAR HEMOGLOBIN 29.8 pg (27.0-33.0); RED BLOOD CELL COUNT(AUTO) 3.83 MIL/uL (4.50-6.20); RED CELL DISTRIBUTION WIDTH 13.4 % (11.0-15.5); WHITE BLOOD COUNT (AUTO) 9.6 K/uL (4.8-10.8)
[2020-09-12 04:26] LABS: CREATININE 1.7 mg/dL (0.5-1.5); POTASSIUM 4.2 mmol/L (3.5-5.1)
[2020-09-12] MEDS: CEFAZOLIN SODIUM 1 GM VIAL IVP SCH ×2 (04:26→16:30)
[2020-09-12] MEDS ORDERED: CEFAZOLIN SODIUM 1 GM VIAL IVP ONE (05:00)
[2020-09-12] MEDS ORDERED: SODIUM CHLORIDE 0.9% 1000ML 1,000 ML IV ONE (08:07)
[2020-09-12] MEDS: FINASTERIDE 5 MG TABLET PO SCH (08:09)
[2020-09-12] MEDS: PANTOPRAZOLE 40 MG/VIAL IVP SCH (08:09)
[2020-09-12] MEDS: ASPIRIN 81 MG EC TAB PO SCH (08:09)
[2020-09-12] MEDS: ALLOPURINOL 100 MG TABLET PO SCH (08:09)
[2020-09-12] MEDS: SODIUM CHLORIDE 0.9% 1000ML 1,000 ML IV SCH ×2 (08:30→18:28)
[2020-09-12] MEDS: MORPHINE SULFATE 4 MG/1ML SYG IV PRN (10:04)
[2020-09-12] MEDS: LABETALOL HCL 100 MG TABLET PO SCH (21:00)
[2020-09-13] VITALS (17 sets, daily range): BP systolic 107–162; BP diastolic 57–86
[2020-09-13] MEDS: CEFAZOLIN SODIUM 1 GM VIAL IVP SCH ×2 (04:26→16:22)
[2020-09-13] MEDS: SODIUM CHLORIDE 0.9% 1000ML 1,000 ML IV SCH (04:27)
[2020-09-13 04:51] LABS: HEMATOCRIT 31.7 % (42-54); MEAN CORPUSCULAR HEMOGLOBIN 29.4 pg (27.0-33.0); MEAN CORPUSCULAR HGB CONC 31.9 g/dL (32.0-36.0); MEAN CORPUSCULAR VOLUME 92.4 fL (79-99); RED BLOOD CELL COUNT(AUTO) 3.43 MIL/uL (4.50-6.20); RED CELL DISTRIBUTION WIDTH 13.3 % (11.0-15.5); WHITE BLOOD COUNT (AUTO) 8.3 K/uL (4.8-10.8)
[2020-09-13 04:59] LABS: CREATININE 1.9 mg/dL (0.5-1.5); POTASSIUM 4.3 mmol/L (3.5-5.1)
[2020-09-13] MEDS: FINASTERIDE 5 MG TABLET PO SCH (08:10)
[2020-09-13] MEDS: ASPIRIN 81 MG EC TAB PO SCH (08:10)
[2020-09-13] MEDS: PANTOPRAZOLE 40 MG/VIAL IVP SCH (08:10)
[2020-09-13] MEDS: ALLOPURINOL 100 MG TABLET PO SCH (08:10)
[2020-09-13] MEDS: MORPHINE SULFATE 4 MG/1ML SYG IV PRN (11:28)
[2020-09-13] MEDS: LABETALOL HCL 100 MG TABLET PO SCH (19:54)
[2020-09-14] MEDS ORDERED: TEMAZEPAM 15 MG CAPSULE ONE (00:55)
[2020-09-14 03:07] VITALS: BP 119/59
[2020-09-14 03:53] LABS: HEMATOCRIT 27.5 % (42-54); MEAN CORPUSCULAR HEMOGLOBIN 30.5 pg (27.0-33.0); MEAN CORPUSCULAR HGB CONC 33.1 g/dL (32.0-36.0); MEAN CORPUSCULAR VOLUME 92.3 fL (79-99); RED BLOOD CELL COUNT(AUTO) 2.98 MIL/uL (4.50-6.20); RED CELL DISTRIBUTION WIDTH 13.3 % (11.0-15.5); WHITE BLOOD COUNT (AUTO) 5.9 K/uL (4.8-10.8)
[2020-09-14 04:05] LABS: CREATININE 1.6 mg/dL (0.5-1.5); POTASSIUM 3.7 mmol/L (3.5-5.1)
[2020-09-14] MEDS: CEFAZOLIN SODIUM 1 GM VIAL IVP SCH (06:03)
[2020-09-14 08:06] VITALS: BP 157/69
[2020-09-14] MEDS: FINASTERIDE 5 MG TABLET PO SCH (08:31)
[2020-09-14] MEDS: PANTOPRAZOLE 40 MG/VIAL IVP SCH (08:31)
[2020-09-14] MEDS: ASPIRIN 81 MG EC TAB PO SCH (08:31)
[2020-09-14] MEDS: ALLOPURINOL 100 MG TABLET PO SCH (08:31)
[2020-09-14] MEDS ORDERED: ENOXAPARIN SODIUM 40 MG/0.4 ML SYRINGE SQ SCH (09:00)
[2020-09-14] MEDS ORDERED: AMLODIPINE BESYLATE 2.5 MG TAB PO SCH (09:00)
[2020-09-14 11:15] VITALS: BP 157/71
[2020-09-14 15:15] VITALS: BP 149/62
[2020-09-14] MEDS ORDERED: AMLO-258 PO (16:20)
[2020-09-14] MEDS ORDERED: ATORVASTATIN CALCIUM 20 MG TABLET PO SCH (21:00)
== END 2020-09-14 16:55 | disposition home or self-care (01) | DRG 220 ==
LOC: EDSTATUS 10:00 → DAHIP 09-11 06:30 → 2CH 09-11 17:04 → 2DH 09-13 17:43
PROVIDERS: ADMIT Internal Medicine; ATTEND Internal Medicine
PROC: 04V03FZ Restriction of Abdominal Aorta with Branched or Fenestrated Intraluminal Device, Three or More Arteries, Percutaneous Approach (ICD-10-PCS; 2020-09-11)
PROC: 04U Lower Arteries, Supplement (ICD-10-PCS; 2020-09-11)
PROC: 03U60JZ Supplement Left Axillary Artery with Synthetic Substitute, Open Approach (ICD-10-PCS; 2020-09-11)
PROC: 04U Lower Arteries, Supplement (ICD-10-PCS; 2020-09-11)
PROC: 04U Lower Arteries, Supplement (ICD-10-PCS; 2020-09-11)
PROC: B3101ZZ Fluoroscopy of Thoracic Aorta using Low Osmolar Contrast (ICD-10-PCS; 2020-09-11)
PROC: B4101ZZ Fluoroscopy of Abdominal Aorta using Low Osmolar Contrast (ICD-10-PCS; 2020-09-11)
PROC: B41B1ZZ Fluoroscopy of Other Intra-Abdominal Arteries using Low Osmolar Contrast (ICD-10-PCS; 2020-09-11)
PROC: B4141ZZ Fluoroscopy of Superior Mesenteric Artery using Low Osmolar Contrast (ICD-10-PCS; 2020-09-11)
PROC: B4171ZZ Fluoroscopy of Left Renal Artery using Low Osmolar Contrast (ICD-10-PCS; 2020-09-11)
PROC: 047D3ZZ Dilation of Left Common Iliac Artery, Percutaneous Approach (ICD-10-PCS; principal; 2020-09-11 08:50)
PROC: 047C3ZZ Dilation of Right Common Iliac Artery, Percutaneous Approach (ICD-10-PCS; 2020-09-11 08:50)
PROC: 02VW3DZ Restriction of Thoracic Aorta, Descending with Intraluminal Device, Percutaneous Approach (ICD-10-PCS; 2020-09-11 08:50)
DX: I71.4 Abdominal aortic aneurysm, without rupture (principal); D62 Acute posthemorrhagic anemia; I71.2 Thoracic aortic aneurysm, without rupture; I72.8 Aneurysm of other specified arteries; F17.200 Nicotine dependence, unspecified, uncomplicated; I12.9 Hypertensive chronic kidney disease with stage 1 through stage 4 chronic kidney disease, or unspecified chronic kidney disease; N18.30 Chronic kidney disease, stage 3 unspecified; Z20.822 Contact with and (suspected) exposure to COVID-19; E78.00 Pure hypercholesterolemia, unspecified; E87.70 Fluid overload, unspecified; N40.0 Benign prostatic hyperplasia without lower urinary tract symptoms; Z79.02 Long term (current) use of antithrombotics/antiplatelets; Z79.899 Other long term (current) drug therapy; Z86.79 Personal history of other diseases of the circulatory system; Z90.5 Acquired absence of kidney
CPT/HCPCS: 33886; 34710; 34713; 34716; 36245; 36251; 36415; 37236; 37237; 71045; 75726; 80048; 81001; 85025; 85027; 85610; 85730; 86850; 86900; 86901; 86923; 93005; 97039; A4344; A4606; C1725; C1760; C1769; C1887; C1894; C9113; G0378; J0330; J0461; J0690; J1644; J2001; J2250; J2270; J2405; J2704; J2710; J3010; J3490; J7030; J7040; J7120; Q9967; U0003

== ENCOUNTER → 2020-11-19 | Outpatient (CLI) | payer MEDICARE ==
[~2020-11-19] MED LIST changes: +AMLO-258 PO; -AMLO5TAB4 PO; +IOHEXOL 350 MG/ML 100ML INFUS..BTL IV ONE; -LISI1TAB51 PO
== END | disposition home or self-care (01) ==
LOC: RAH 08:00
PROVIDERS: ATTEND Internal Medicine Cardiovascular Disease
DX: I70.0 Atherosclerosis of aorta (principal); I71.2 Thoracic aortic aneurysm, without rupture; K57.30 Diverticulosis of large intestine without perforation or abscess without bleeding; K76.0 Fatty (change of) liver, not elsewhere classified; C22.0 Liver cell carcinoma; Z95.828 Presence of other vascular implants and grafts
CPT/HCPCS: 71275; 74174; Q9967

== ENCOUNTER → 2023-09-29 | Outpatient (CLI) | payer MEDICARE ==
[~2023-09-29] MED LIST changes: -IOHEXOL 350 MG/ML 100ML INFUS..BTL IV ONE; -LABE100T5 PO; +LABE100T7 PO
== END | disposition home or self-care (01) ==
LOC: SHCH 09:39
PROVIDERS: ATTEND Internal Medicine Cardiovascular Disease
DX: I08.3 Combined rheumatic disorders of mitral, aortic and tricuspid valves (principal); I65.23 Occlusion and stenosis of bilateral carotid arteries; I11.9 Hypertensive heart disease without heart failure; R01.1 Cardiac murmur, unspecified; I77.1 Stricture of artery
CPT/HCPCS: 93306; 93880